=== PATIENT | female | born 1990 | race Caucasian/White ===

== ENCOUNTER 2016-07-24 10:34 | Emergency (ER) | payer OTHER ==
[~2016-07-24] VITALS: Ht 172.7 cm; Wt 72.6 kg
[~2016-07-24 10:34] MED LIST: CIPRO500 M1 PO; CYCLOBENZAPRINE5 M2 PO; DOXYCYCLINE HY100 M2 PO; LEVSIN-SL0.125 MG SL; MEDROL4 M2 PO; MOBIC15 M1 PO; NAPROSYN500 M1 PO; PATADAY2.5 ML OPH; PERCOCET 325 MG1 TA2 PO; ULTRAM50 M1 PO; VICODIN5-300 PO; ZOFRAN ODT4 M1 SL; ZOFRAN4 M1 PO
[2016-07-24 11:29] LABS: ABSOLUTE BASOPHIL COUNT 0 /CUMM (0.0-0.2); ABSOLUTE EOSINOPHIL COUNT 0.1 /CUMM (0.0-0.7); ABSOLUTE GRANULOCYTE CT 2.4 /CUMM (1.4-6.5); ABSOLUTE LYMPH COUNT 1.9 /CUMM (1.2-3.4); ABSOLUTE MONOCYTE COUNT 0.4 /CUMM (0.10-0.60); BASOPHIL % 0.4 % (0.0-2.0); EOSINOPHIL % 2.1 % (0-5); GRANULOCYTE % 49.3 % (42.2-75.2); MEAN CORPUSCULAR HGB 29.9 PG (27.0-31.0); MEAN CORPUSCULAR VOLUME 90.5 FL (81.0-99.0); PLATELET COUNT 289 /CUMM (130-400); RBC DISTRIBUTION WIDTH 13.6 % (11.5-14.5); RED BLOOD CELL CT 4.97 /CUMM (4.20-5.40); WHITE BLOOD CELL COUNT 4.8 /CUMM (4.8-10.8)
--- NOTE | 2016-07-24 12:08 | ED GI/GU/ABDOMINAL COMPLAINT ---
History of Present Illness General Chief Complaint: Abdominal Pain/Flank Pain Stated Complaint: ABD PAIN Source: patient Exam Limitations: no limitations Vital Signs & Intake/Output Vital Signs & Intake/Output Vital Signs Date Time Temp Pulse Resp B/P Pulse O2 O2 Flow FiO2 Ox Delivery Rate 07/24 1329 96.7 68 18 115/73 98 Room Air 07/24 1041 96.9 70 15 126/86 99 Room Air ED Intake and Output 07/25 0000 07/24 1200 Intake Total Output Total Balance Patient 160 lb Weight Allergies Coded Allergies: amoxicillin (Severe, THROAT CLOSES 03/29/16) calamine (Severe, REACTION FROM POISON SULEMAN GETS WORSE AND DYSPNEA 03/29/16) poison suleman extract (Severe, RASH 03/29/16) venom-honey bee (BEE VENOM (HONEY BEE)) (Severe, THROAT CLOSURE 03/29/16) Penicillins (Intermediate, RASH, SWELLING, NAUSEA 03/29/16) Uncoded Allergies: IVORY SOAP (Severe, RASH 12/27/11) Reconcile Medications Doxycycline Hyclate 100 MG CAPSULE 1 CAP PO BID cellulitis Hyoscyamine Sulfate (Levsin-Sl) 0.125 MG TAB.SUBL 1-2 TAB SL Q4P PRN abdominal cramps Naproxen (Naprosyn) 500 MG TABLET 1 TAB PO BID PRN pain Olopatadine HCl (Pataday) 0.2 % DROPS 1 GTT OPH DAILY ALLERGIES (Reported) Ondansetron (Zofran Odt) 4 MG TAB.RAPDIS 1 TAB SL TID nausea Ondansetron (Zofran Odt) 4 MG TAB.RAPDIS 1 TAB SL TID PRN nausea Oxycodone HCl/Acetaminophen (Percocet 5-325 MG Tablet) 5 MG-325 MG TABLET 1-2 TAB PO Q6P PRN pain Tramadol HCl (Ultram) 50 MG TABLET 1-2 TAB PO Q6PRN PRN severe pain Triage Note: PT TO ED FOR ABD PAIN AND VOMITING "EVERY DAY SINCE MARCH" HAS GI APT ON TUESDAY. Triage Nurses Notes Reviewed? yes ? n Is pt currently ? No Onset: Gradual Timin year Location: generalized abdomen Radiation: no radiation No Modifying Factors: none HPI: 26-year-old female comes into emergency room with complaints of generalized abdominal pain that has been going on for over one year. Patient reports that every day she had a sharp pain when she wakes up and feels generally nauseous. Pain is only severe. Patient reports that there is no new symptoms in regards to her pain. Patient reports it's been slightly increased this past week. Patient has an appointment with coat repair inspector on Tuesday. Patient decided to come in for evaluation here in the emergency room. Denies any fever chills vomiting or changes in bowel movement. (BINTA MCGRAW) Past History Travel History Traveled to [place] past 21 day No Medical History Any Pertinent Medical History? 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 No (BINTA MCGRAW) Review of Systems Review of Systems Constitutional: Reports: no symptoms. EENTM: Reports: no symptoms. Respiratory: Reports: no symptoms. Cardiovascular: Reports: no symptoms. GI: Reports: see HPI. Genitourinary: Reports: no symptoms. Musculoskeletal: Reports: no symptoms. Skin: Reports: no symptoms. Neurological/Psychological: Reports: no symptoms. Hematologic/Endocrine: Reports: no symptoms. Immunologic/Allergic: Reports: no symptoms. All Other Systems: Reviewed and Negative (BINTA MCGRAW) Physical Exam Physical Exam General Appearance: well developed/nourished, no apparent distress, alert Head: atraumatic, normal appearance Eyes: Bilateral: normal appearance. Ears, Nose, Throat, Mouth: hearing grossly normal, moist mucous membrane Neck: normal inspection Respiratory: normal breath sounds, no respiratory distress Cardiovascular: regular rate/rhythm Gastrointestinal: soft, tenderness, No guarding, no rebound tenderness Back: normal inspection Extremities: normal range of motion Neurologic/Psych: awake, alert, oriented x 3, normal gait, normal mood/affect Skin: intact, normal color Core Measures ACS in differential dx? No Severe Sepsis Present: No Septic Shock Present: No (BINTA MCGRAW) Progress Differential Diagnosis: AMI, appendicitis, biliary colic, bowel obstruction, cholecystitis, diverticulitis, ectopic , gastritis, hepatitis, hernia, hemorrhoids, ischemic bowel, inflamm bowel dis, intrauterine , kidney stone, Lucila-Ilir tear, ovarian cyst, ovarian torsion, pancreatitis, PID/ cervicitis, peptic ulcer, PUD/GERD, perforated viscous, UTI/pyelo, IBS, inflammatory bowel disease, Plan of Care: Orders Procedure Date/time Status URINE 07/24 1102 Complete URINALYSIS 07/24 1102 Complete LIPASE 07/24 1102 Complete COMPREHENSIVE METABOLIC PANEL 07/24 1102 Complete CBC WITHOUT DIFFERENTIAL 07/24 1102 Complete Laboratory Tests 07/24/16 1142: Urinalysis LIGHT H, Urine Color YEL, Urine Clarity HAZY H, Urine pH 7.5, Ur Specific [place] 1.015, Urine Protein TRACE H, Urine Ketones NEG, Urine Nitrite NEG, Urine Bilirubin NEG, Urine Urobilinogen 0.2, Ur Leukocyte Esterase NEG, Ur Microscopic SEDIMENT EXAMINED, Urine RBC 1-3, Urine WBC 1-3 H, Ur Epithelial Cells MOD H, Urine Bacteria MOD H, Hyaline Casts RARE H, Granular Casts RARE H, Urine Mucus MOD H, Urine Hemoglobin NEG, Urine Glucose NEG, Urine Test NEGATIVE 07/24/16 1119: Anion Gap 10, Estimated GFR > 60, BUN/Creatinine Ratio 13.3, Glucose 95, Calcium 9.2, Total Bilirubin 0.6, AST 19, ALT 27, Alkaline Phosphatase 56, Total Protein 7.3, Albumin 4.2, Globulin 3.1, Albumin/Globulin Ratio 1.4, Lipase 67, CBC w Diff NO MAN DIFF REQ, RBC 4.97, MCV 90.5, MCH 29.9, RDW 13.6, MPV 7.0 L, Gran % 49.3, Lymphocytes % 39.8, Monocytes % 8.4, Eosinophils % 2.1, Basophils % 0.4, Absolute Granulocytes 2.4, Absolute Lymphocytes 1.9, Absolute Monocytes 0.4, Absolute Eosinophils 0.1, Absolute Basophils 0, PUBS MCHC 33.0 Initial ED EKG: none Comments: 07/24/2016 4:03:13 PM Patient has no acute abdomen on exam. Symptoms have been going on for over a year. I do not feel patient requires diagnostic imaging at this time. Patient had a normal CAT scan and normal ultrasound done a little over a year ago. Patient already has follow-up on Tuesday with gastric urologist. Reevaluated multiple times. Continued to remain in no apparent distress. shared decision. Patient understands and agrees with plan of care. (BINTA MCGRAW) Departure Departure Disposition: HOME OR SELF CARE Condition: Stable Clinical Impression Primary Impression: Abdominal pain Referrals: PATIENT HAS NO PRIMARY CARE DR (PCP/Family) Additional Instructions: Take Percocet and Zofran ODT as prescribed. Follow-up with coat repair inspector on Tuesday as already scheduled. Return if any concerns worsening symptoms. Please go over all results of today's visit with your primary care doctor. Contact your primary care doctor to let them know you were here in the emergency room. There may be nonspecific findings which may not be related to your visit today here in the emergency room but may require further evaluation and chronic monitoring by your primary care doctor. If you had a laceration today the chance of foreign body always remains. You should follow-up with your primary care doctor for recheck in 3-5 days for a wound check. If you had an x-ray done there is a chance that a fracture could have been missed on initial read and you should follow-up with your primary care doctor for repeat x-rays if symptoms persist. If your blood pressure was elevated here in the emergency room please have rechecked by her primary care doctor within the next 48 hours by your primary care doctor. If you were prescribed a narcotic here in the emergency room or any type of controlled substances you're not allowed to drive while taking this medication or operate any type of heavy machinery. Narcotics can make you feel lightheaded dizziness nausea and can cause constipation. You may need to pickle maker a stool softener. Thank you for choosing [facility] emergency room. Please return to the emergency room immediately if you have any other concerns worsening of symptoms. Departure Forms: Customer Survey General Discharge Information Prescriptions: Current Visit Scripts Oxycodone HCl/Acetaminophen (Percocet 5-325 MG Tablet) 1-2 TAB PO Q6P PRN pain #15 TAB Ondansetron (Zofran Odt) 1 TAB SL TID #10 TAB (BINTA MCGRAW) PA/BANDER HAND Co-Sign Statement Statement: ED Attending supervision documentation- [] I saw and evaluated the patient. I have also reviewed all the pertinent lab results and diagnostic results. I agree with the findings and the plan of care as documented in the PA's/BANDER HAND's documentation. [X] I have reviewed the ED Record and agree with the PA's/BANDER HAND's documentation. [] Additions or exceptions (if any) to the PAs/BANDER HAND's note and plan are summarized below: [] (SOOLMON LEDEZMA,REGINO)
[2016-07-24 13:29] VITALS: BP 115/73
[2016-07-24] MEDS ORDERED: PERCOCET 5-3251 EACH PO (13:32)
[2016-07-24] MEDS ORDERED: ZOFRAN ODT4 M1 SL (13:32)
== END 2016-07-24 13:54 ==
LOC: ERH 10:34
PROVIDERS: Physician Assistant Medical
DX: R10.84 Generalized abdominal pain (principal)
CPT/HCPCS: 81001; 81025; J3101

== ENCOUNTER 2016-09-27 13:54 | Emergency (ER) | payer OTHER ==
[~2016-09-27] VITALS: Ht 175.3 cm; Wt 74.8 kg
[~2016-09-27 13:54] MED LIST changes: +PERCOCET 5-3251 EACH PO
[2016-09-27 14:11] VITALS: BP 128/70
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
[2016-09-27 15:44] LABS: ABSOLUTE BASOPHIL COUNT 0 /CUMM (0.0-0.2); ABSOLUTE EOSINOPHIL COUNT 0.1 /CUMM (0.0-0.7); ABSOLUTE GRANULOCYTE CT 6.4 /CUMM (1.4-6.5); ABSOLUTE MONOCYTE COUNT 0.7 /CUMM (0.10-0.60); BASOPHIL % 0.5 % (0.0-2.0); EOSINOPHIL % 0.9 % (0-5); GRANULOCYTE % 69.4 % (42.2-75.2); HEMATOCRIT 45.5 % (37-47); MEAN CORPUSCULAR HGB 30.8 PG (27.0-31.0); MEAN CORPUSCULAR HGB CONC 33.6 G/DL (33.0-37.0); MEAN CORPUSCULAR VOLUME 91.5 FL (81.0-99.0); MEAN PLATELET VOLUME 7.6 FL (7.4-10.4); PLATELET COUNT 279 /CUMM (130-400); RBC DISTRIBUTION WIDTH 14.1 % (11.5-14.5); RED BLOOD CELL CT 4.97 /CUMM (4.20-5.40); WHITE BLOOD CELL COUNT 9.3 /CUMM (4.8-10.8)
[2016-09-27] MEDS ORDERED: DELTASONE20 MG PO (16:52)
[2016-09-27] MEDS ORDERED: BACTRIM DS TAB1 EACH PO (16:52)
[2016-09-27] MEDS ORDERED: ZOFRAN ODT4 M1 SL (16:52)
[2016-09-27] MEDS ORDERED: PERCOCET 5-3251 EACH PO (16:52)
== END 2016-09-27 17:10 ==
LOC: ERH 13:54
PROVIDERS: Physician Assistant Medical
DX: N39.0 Urinary tract infection, site not specified (principal); T78.40XA Allergy, unspecified, initial encounter; R10.84 Generalized abdominal pain
CPT/HCPCS: 81001; 81025; 87086; 87088; 96372; J1885; J3101